=== PATIENT | male | born 1950 | race Caucasian/White ===

== ENCOUNTER 2017-12-18 10:44 | Emergency (ER) | payer MEDICAID, MEDICARE ==
[2017-12-18] MEDS ORDERED: Sodium Chloride 0.9% 10 ML Syringe FLUSH PRN (10:55)
--- NOTE | 2017-12-18 11:07 | EDM.PDOC ---
ED HPI GENERAL MEDICAL PROBLEM - General Chief Complaint: General Stated Complaint: A-FIB Time Seen by Provider: 12/18/17 10:45 Source of Information: Reports: Patient, Family, RN History Limitations: Reports: No Limitations - History of Present Illness INITIAL COMMENTS - FREE TEXT/NARRATIVE: 67 yr male presents to ER with feeling weakness and feels like he has atrial fibrillation. States significant cardiac history. Recent change of pacemaker about 3 weeks ago. States medications changed about 1 month ago. VS stable and EKG - Related Data Allergies Allergy/AdvReac Type Severity Reaction Status Date / Time codeine Allergy Cannot Verified 12/30/13 14:14 Remember Home Meds: Home Meds Carvedilol 25 mg PO BID 10/23/13 [History] Lisinopril [Zestril] 10 mg PO DAILY 10/23/13 [History] Nitroglycerin [Nitrostat] 0.4 mg SL ASDIRECTED PRN 10/23/13 [History] Prasugrel [Effient] 10 mg PO DAILY 10/23/13 [History] atorvaSTATin [Lipitor] 80 mg PO BEDTIME 10/23/13 [History] metFORMIN [Glucophage] 500 mg PO BIDM 10/23/13 [History] Aspirin [Ecotrin] 325 mg PO DAILY 12/26/15 [History] Past Medical History HEENT History: Reports: Impaired Vision Cardiovascular History: Reports: Bypass, CAD, High Cholesterol, Hypertension, [place] , Pacemaker Genitourinary History: Reports: Prostate Disorder - Past Surgical History Cardiovascular Surgical History: Reports: Coronary Artery Bypass, Coronary Artery Stent, Other (See Below) Social & Family History - Living Situation & Occupation Living situation: Reports: Occupation: Disabled ED ROS GENERAL - Review of Systems Review Of Systems: See Below Constitutional: Reports: Weakness, Other (tired) HEENT: Reports: No Symptoms, Glasses Respiratory: Reports: No Symptoms. Denies: Shortness of Breath, Cough Cardiovascular: Reports: Chest Pain, Other (feels like atrial fibrillation). Denies: Palpitations GI/Abdominal: Reports: No Symptoms Musculoskeletal: Reports: No Symptoms Skin: Reports: No Symptoms Neurological: Reports: No Symptoms Psychiatric: Reports: No Symptoms ED EXAM, GENERAL - Physical Exam Exam: See Below Exam Limited By: No Limitations General Appearance: Alert, WD/WN, No Apparent Distress Ears: Hearing Grossly Normal Nose: Normal Inspection Throat/Mouth: Normal Inspection, Normal Lips, No Airway Compromise Head: Atraumatic, Normocephalic Neck: Normal Inspection, Supple, Non-Tender Respiratory/Chest: No Respiratory Distress, Lungs Clear, Normal Breath Sounds Cardiovascular: Normal Peripheral Pulses, Regular Rate, Rhythm GI/Abdominal: Soft, Non-Tender, No Distention Extremities: Normal Inspection, Normal Range of Motion, Non-Tender Neurological: Alert, Oriented, CN II-XII Intact, Normal Cognition Psychiatric: Normal Affect, Normal Mood Skin Exam: Warm, Dry, Intact, Normal Color Lymphatic: No Adenopathy EKG INTERPRETATION EKG Date: 12/18/17 Time: 10:51 Rhythm: A-Flutter Rate (Beats/Min): 93 P-Wave: Present Comparison: Change From Previous EKG EKG Interpretation Comments: Atrial flutter with rate of 93, no pacer spikes noted. Course - Orders/Labs/Meds Orders: Active Orders 24 hr Category Date Time Status Cardiac Monitoring [RC] .As Directed Care 12/18/17 10:56 Active EKG Documentation Completion [RC] ASDIRECTED Care 12/18/17 10:57 Active Sodium Chloride 0.9% [Saline Flush] Med 12/18/17 10:55 Active 10 ml FLUSH ASDIRECTED PRN Saline Lock Insert [OM.PC] Stat Oth 12/18/17 10:55 Ordered Medication Orders Sodium Chloride (Saline Flush) 10 ml FLUSH ASDIRECTED PRN PRN Reason: Keep Vein Open Labs: Laboratory Tests 12/18/17 12/18/17 12/18/17 Range/Units 11:00 11:00 11:00 WBC 6.7 D (4.0-11.0) K/uL RBC 4.53 (4.50-6.50) M/uL Hgb 13.6 (13.0-18.0) g/dL Hct 40.6 (40.0-54.0) % MCV 90 (76-96) fL MCH 30.0 (27.0-32.0) pg MCHC 33.5 (31.0-35.0) g/dL RDW 13.6 (11.0-16.0) % Plt Count 190 (150-400) K/uL MPV 10.1 H (6.0-10.0) fL Neut % (Auto) 65.8 (45.0-70.0) % Lymph % (Auto) 26.2 (20.0-40.0) % [place] % (Auto) 6.4 (3.0-10.0) % Eos % (Auto) 1.3 (1.0-5.0) % Baso % (Auto) 0.3 (0.0-0.5) % Neut # (Auto) 4.41 (2.00-7.50) K/uL Lymph # (Auto) 1.76 (1.50-4.00) K/uL [place] # (Auto) 0.43 (0.20-0.80) K/uL Eos # (Auto) 0.09 (0.04-0.40) K/uL Baso # (Auto) 0.02 (0.02-0.10) K/uL Sodium 139 (136-145) mmol/L Potassium 4.3 (3.5-5.1) mmol/L Chloride 106 (98-107) mmol/L Carbon Dioxide 25.4 (21.0-32.0) mmol/L Anion Gap 11.9 (5.0-15.0) mmol/L BUN 23 (8-26) mg/dL Creatinine 1.18 (0.70-1.30) mg/dL Est Cr Clr Drug Dosing TNP Estimated GFR (MDRD) > 60 (>60) MLS/MIN BUN/Creatinine Ratio 19.5 (6-25) Glucose 168 H (74-100) mg/dL Calcium 9.0 (8.5-10.1) mg/dL Total Bilirubin 0.4 D (0.0-1.0) mg/dL AST 16 (15-37) U/L ALT 28 (12-78) U/L Alkaline Phosphatase 84 (46-116) U/L Troponin I < 0.017 (0.000-0.060) ng/mL Total Protein 7.2 (6.4-8.2) g/dL Albumin 3.6 (3.4-5.0) g/dL Globulin 3.6 (2.2-4.2) g/dL Albumin/Globulin Ratio 1.0 (0.8-2.0) TSH, Ultra Sensitive 2.283 (0.358-3.740) uIU/mL Meds: Medications Generic Name Dose Route Start Last Admin Trade Name Konradq PRN Reason Stop Dose Admin Sodium Chloride 10 ml 12/18/17 10:55 Saline Flush FLUSH ASDIRECTED PRN Keep Vein Open - Re-Assessments/Exams Free Text/Narrative Re-Assessment/Exam: 12/18/17 12:26 Reviewed EKG, lab results, troponins are negative and TSH normal , Electrolytes, kidney function and liver function tests are negative. Discussed pt status with cardiology, Rusty Allan. Dr Martin is off, so talked with instructional developer provider. Results faxed to cardiology for review. Recommend increase of Sotalol to 120mg PO bid and return to Dr Martin for follow -up. Reviewed with pt and . Pt comfortable and symptoms relieved during ER visit. Departure - Departure Time of Disposition: 12:30 Disposition: Home, Self-Care 01 Condition: Good Clinical Impression: Arrhythmia Referrals: PCP,None [Ordering Only Provider] - Forms: ED Department Discharge - My Orders Last 24 Hours: My Active Orders 12/18/17 10:55 Sodium Chloride 0.9% [Saline Flush] 10 ml FLUSH ASDIRECTED PRN Saline Lock Insert [OM.PC] Stat 12/18/17 10:56 Cardiac Monitoring [RC] .As Directed 12/18/17 10:57 EKG Documentation Completion [RC] ASDIRECTED - Assessment/Plan Last 24 Hours: My Active Orders 12/18/17 10:55 Sodium Chloride 0.9% [Saline Flush] 10 ml FLUSH ASDIRECTED PRN Saline Lock Insert [OM.PC] Stat 12/18/17 10:56 Cardiac Monitoring [RC] .As Directed 12/18/17 10:57 EKG Documentation Completion [RC] ASDIRECTED Plan: Recommend to rest and relax and increase Sotalol to 120mg PO bid. Pt to monitor heart rate and BP daily and follow-up with cardiology in 1-2 weeks. Recommend activity every 1-2 hour of ambulation while awake to prevent any blood clots with this atrial flutter. Pt and states understanding of the plan and will follow-up with cardiology. If symptoms reoccur pt should report to ER. Plans to go camping this weekend in [place].
== END 2017-12-18 12:30 | disposition home or self-care (01) ==
LOC: LB.ED 10:44
DX: I49.9 Cardiac arrhythmia, unspecified (principal); I10 Essential (primary) hypertension; Z95.1 Presence of aortocoronary bypass graft; Z95.5 Presence of coronary angioplasty implant and graft; Z79.899 Other long term (current) drug therapy; Z79.82 Long term (current) use of aspirin; Z79.84 Long term (current) use of oral hypoglycemic drugs; Z88.5 Allergy status to narcotic agent
CPT/HCPCS: 36415; 80053; 84443; 84484; 85025; 93005; 99284; 99285-25

== ENCOUNTER 2019-02-04 22:45 | Emergency (ER) | payer MEDICARE ==
--- NOTE | 2019-02-04 23:29 | EDM.PDOC ---
ED HPI GENERAL MEDICAL PROBLEM - General Chief Complaint: General Stated Complaint: afib Time Seen by Provider: 02/04/19 23:10 Source of Information: Reports: Patient History Limitations: Reports: No Limitations - History of Present Illness INITIAL COMMENTS - FREE TEXT/NARRATIVE: Pt has chronic Afib and has been on sotalol, Coreg and amiodarone. He claims he has chuy feeling tired for past 6 hours now. He claims his pulse is weak, and has been checking his pulse and claims his pulse is weak and hence he came into emergency room. No chest pain, no shortness of breath, no sweating, no nausea or vomiting. No dizzy spells or syncope. Onset: Today Onset Time: 14:00 Associated Symptoms: Reports: Weakness. Denies: Confusion, Chest Pain, Cough, Diaphoresis, Fever/Chills, Headaches, Nausea/Vomiting, Rash, Seizure, Shortness of Breath, Syncope - Related Data Allergies Allergy/AdvReac Type Severity Reaction Status Date / Time codeine Allergy Cannot Verified 02/04/19 23:16 Remember Home Meds: Home Meds Carvedilol 12.5 mg PO BID 10/23/13 [History] Lisinopril [Zestril] 10 mg PO DAILY 10/23/13 [History] Nitroglycerin [Nitrostat] 0.4 mg SL ASDIRECTED PRN 10/23/13 [History] Prasugrel [Effient] 10 mg PO DAILY 10/23/13 [History] atorvaSTATin [Lipitor] 80 mg PO BEDTIME 10/23/13 [History] metFORMIN [Glucophage] 500 mg PO BIDM 10/23/13 [History] Aspirin [Ecotrin] 325 mg PO DAILY 12/26/15 [History] Sotalol [Betapace, Sorine] 120 mg PO BID 01/25/18 [History] Tamsulosin HCl [Flomax] 0.4 mg PO DAILY 01/25/18 [History] Past Medical History HEENT History: Reports: Impaired Vision Cardiovascular History: Reports: Bypass, CAD, High Cholesterol, Hypertension, [place] , Pacemaker Genitourinary History: Reports: Prostate Disorder - Past Surgical History Cardiovascular Surgical History: Reports: Coronary Artery Bypass, Coronary Artery Stent, Other (See Below) Social & Family History - Living Situation & Occupation Living situation: Reports: Occupation: Disabled ED ROS GENERAL - Review of Systems Review Of Systems: See Below Constitutional: Reports: Weakness. Denies: Fever, Chills HEENT: Denies: Ear Pain, Rhinitis, Throat Pain Respiratory: Denies: Shortness of Breath, Wheezing, Pleuritic Chest Pain, Cough , Sputum Cardiovascular: Denies: Chest Pain, Lightheadedness, Syncope GI/Abdominal: Denies: Abdominal Pain, Nausea, Vomiting : Denies: Flank Pain, Frequency Musculoskeletal: Denies: Joint Pain, Joint Swelling Skin: Denies: Bruising, Pruritis, Rash, Wound ED EXAM, GENERAL - Physical Exam Exam: See Below Exam Limited By: No Limitations General Appearance: Alert, WD/WN, No Apparent Distress Eye Exam: Bilateral Eye: EOMI, PERRL Ears: Normal External Exam, Normal Canal, Hearing Grossly Normal, Normal TMs Ear Exam: Bilateral Ear: Auricle Normal, Canal Normal, TM normal Nose: Normal Inspection, Normal Mucosa, No Blood Throat/Mouth: Normal Inspection, Normal Lips, Normal Teeth, Normal Gums, Normal Oropharynx, Normal Voice, No Airway Compromise Head: Atraumatic, Normocephalic Neck: Normal Inspection, Supple, Non-Tender, Full Range of Motion Respiratory/Chest: No Respiratory Distress, Lungs Clear, Normal Breath Sounds, No Accessory Muscle Use, Chest Non-Tender Cardiovascular: Irregularly Irregular, Other (rate is varying between 80-90s.) GI/Abdominal: Normal Bowel Sounds, Soft, Non-Tender, No Organomegaly, No Distention, No Abnormal Bruit, No Mass Back Exam: Normal Inspection, Full Range of Motion, NT Extremities: Normal Inspection, Normal Range of Motion, Non-Tender, Normal Capillary Refill, Pedal Edema (1+ over the ankle and lower legs) EKG INTERPRETATION EKG Date: 02/04/19 Rate (Beats/Min): 98 [place]: Normal P-Wave: Present QRS: Normal ST-T: Normal QT: Normal EKG Interpretation Comments: Afib with rate of 98 Course - Vital Signs Text/Narrative:: Pt claims he feels tired since today afternoon. He has no chest pain, shortness of breath, chest discomfort, no sweating. No blood in the stool or urine. He does have afib and rate appears controlled. His Blood pressure is stable. Initial BP was 134/91mmhg, repeat after 15 minutes of resting was 115/74mmhg. He does have strong pulse, but is irregularly irregular. he is on stoke prophylaxis with Effient. Clinically exam and vitals are stable. Considering his chronic cardiac history and fatigue and with him being on blood thinner, I do want to rule out, anemia, hypothyroidism and acute cardiac episode. hence did order, CBC, CMP, TSH and Troponin. His CBC is normal. His CMP is stable. His Troponin is negative. His TSH is 4.6. In January 2018 his TSh was elevated at 5.4. I do feel patient might have subclinical hypothyroidism, which he should followup with his primary care and professor of religion and see if he is candidate for levothyroxine therapy. Also his fatigue could be related to his new drug , amiodarone which was restarted per patient, but I do not see in any of his cardiology notes. - Orders/Labs/Meds Orders: Active Orders 24 hr Category Date Time Status EKG Documentation Completion [RC] ASDIRECTED Care 02/04/19 23:08 Active Chest 1V Frontal [CR] Stat Exams 02/04/19 23:22 Taken EKG 12 Lead [EK] Routine Ther 02/04/19 23:07 Ordered Labs: Laboratory Tests 02/04/19 02/04/19 02/04/19 Range/Units 22:35 22:35 23:35 WBC 6.7 (4.0-11.0) K/uL RBC 4.23 L (4.50-6.50) M/uL Hgb 12.8 L (13.0-18.0) g/dL Hct 37.9 L (40.0-54.0) % MCV 90 (76-96) fL MCH 30.3 (27.0-32.0) pg MCHC 33.8 (31.0-35.0) g/dL RDW 13.9 (11.0-16.0) % Plt Count 189 (150-400) K/uL MPV 10.5 H (6.0-10.0) fL Neut % (Auto) 59.2 (45.0-70.0) % Lymph % (Auto) 31.4 (20.0-40.0) % [place] % (Auto) 7.7 (3.0-10.0) % Eos % (Auto) 1.4 (1.0-5.0) % Baso % (Auto) 0.3 (0.0-0.5) % Neut # (Auto) 3.95 (2.00-7.50) K/uL Lymph # (Auto) 2.09 (1.50-4.00) K/uL [place] # (Auto) 0.51 (0.20-0.80) K/uL Eos # (Auto) 0.09 (0.04-0.40) K/uL Baso # (Auto) 0.02 (0.02-0.10) K/uL Sodium 140 (136-145) mmol/L Potassium 4.0 (3.5-5.1) mmol/L Chloride 107 (98-107) mmol/L Carbon Dioxide 24.6 (21.0-32.0) mmol/L Anion Gap 12.4 (5.0-15.0) mmol/L BUN 29 H D (8-26) mg/dL Creatinine 1.30 (0.70-1.30) mg/dL Est Cr Clr Drug Dosing TNP Estimated GFR (MDRD) 55 L (>60) MLS/MIN BUN/Creatinine Ratio 22.3 (6-25) Glucose 202 H (74-100) mg/dL Calcium 9.2 (8.5-10.1) mg/dL Total Bilirubin 0.4 D (0.0-1.0) mg/dL AST 11 L (15-37) U/L ALT 16 (12-78) U/L Alkaline Phosphatase 78 (46-116) U/L Troponin I < 0.017 (0.000-0.060) ng/mL Total Protein 6.3 L (6.4-8.2) g/dL Albumin 3.3 L (3.4-5.0) g/dL Globulin 3.0 (2.2-4.2) g/dL Albumin/Globulin Ratio 1.1 (0.8-2.0) TSH, Ultra Sensitive 4.666 H (0.358-3.740) uIU/mL Departure - Departure Time of Disposition: 12:20 Disposition: Home, Self-Care 01 Condition: Fair Clinical Impression: Afib, Hypothyroidism - Discharge Information *PRESCRIPTION DRUG MONITORING PROGRAM REVIEWED*: Not Applicable *COPY OF PRESCRIPTION DRUG MONITORING REPORT IN PATIENT ANANTH: Not Applicable Forms: ED Department Discharge Additional Instructions: Pt claims he feels tired since today afternoon. He has no chest pain, shortness of breath, chest discomfort, no sweating. No blood in the stool or urine. He does have afib and rate appears controlled. His Blood pressure is stable. Initial BP was 134/91mmhg, repeat after 15 minutes of resting was 115/74mmhg. He does have strong pulse, but is irregularly irregular. he is on stoke prophylaxis with Effient. Clinically exam and vitals are stable. Considering his chronic cardiac history and fatigue and with him being on blood thinner, I do want to rule out, anemia, hypothyroidism and acute cardiac episode. hence did order, CBC, CMP, TSH and Troponin. His CBC is normal. His CMP is stable. His Troponin is negative. His TSH is 4.6. In January 2018 his TSh was elevated at 5.4. I do feel patient might have subclinical hypothyroidism, which he should followup with his primary care and professor of religion and see if he is candidate for levothyroxine therapy. Also his fatigue could be related to his new drug , amiodarone which was restarted per patient, but I do not see in any of his cardiology notes. - Problem List & Annotations (1) Afib SNOMED Code(s): 04802294 Code(s): I48.91 - UNSPECIFIED ATRIAL FIBRILLATION Status: Acute (2) Hypothyroidism SNOMED Code(s): 53469456 Code(s): E03.9 - HYPOTHYROIDISM, UNSPECIFIED Status: Acute - Problem List Review Problem List Initiated/Reviewed/Updated: Yes - My Orders Last 24 Hours: My Active Orders 02/04/19 23:07 EKG 12 Lead [EK] Routine 02/04/19 23:08 EKG Documentation Completion [RC] ASDIRECTED 02/04/19 23:22 Chest 1V Frontal [CR] Stat - Assessment/Plan Last 24 Hours: My Active Orders 02/04/19 23:07 EKG 12 Lead [EK] Routine 02/04/19 23:08 EKG Documentation Completion [RC] ASDIRECTED 02/04/19 23:22 Chest 1V Frontal [CR] Stat Assessment:: Afib and fatigue Hypothyroidism. Plan: Pt claims he feels tired since today afternoon. He has no chest pain, shortness of breath, chest discomfort, no sweating. No blood in the stool or urine. He does have afib and rate appears controlled. His Blood pressure is stable. Initial BP was 134/91mmhg, repeat after 15 minutes of resting was 115/74mmhg. He does have strong pulse, but is irregularly irregular. he is on stoke prophylaxis with Effient. Clinically exam and vitals are stable. Considering his chronic cardiac history and fatigue and with him being on blood thinner, I do want to rule out, anemia, hypothyroidism and acute cardiac episode. hence did order, CBC, CMP, TSH and Troponin. His CBC is normal. His CMP is stable. His Troponin is negative. His TSH is 4.6. In January 2018 his TSh was elevated at 5.4. I do feel patient might have subclinical hypothyroidism, which he should followup with his primary care and professor of religion and see if he is candidate for levothyroxine therapy. Also his fatigue could be related to his new drug , amiodarone which was restarted per patient, but I do not see in any of his cardiology notes.
[2019-02-05 04:31] VITALS: BP 115/80; PULSE 111
--- NOTE | 2019-02-05 16:33 | CR ---
CLINICAL DATA: Fatigue and a-fib. AP PORTABLE CHEST, 04 FEBRUARY 2019: The patient is status post median sternotomy. There are numerous surgical clips overlying the medial aspect of the left lung. The heart size is normal. There is cardiac pacer and pacer wires in place. No change in position from the prior study. There is linear fibrosis in the left lower lung. The lungs are otherwise clear. No pneumothorax. No pleural effusions. Job: [id number] MTDD
== END 2019-02-05 00:26 | disposition home or self-care (01) ==
LOC: LB.ED 22:45
DX: I48.91 Unspecified atrial fibrillation (principal); E03.9 Hypothyroidism, unspecified; I10 Essential (primary) hypertension; I25.2 Old myocardial infarction; E78.5 Hyperlipidemia, unspecified; Z79.899 Other long term (current) drug therapy; Z88.5 Allergy status to narcotic agent; Z79.82 Long term (current) use of aspirin; Z95.0 Presence of cardiac pacemaker; Z95.1 Presence of aortocoronary bypass graft
CPT/HCPCS: 36415; 71045; 80053; 84443; 84484; 85025; 99284; 99284-25

== ENCOUNTER 2020-01-02 13:13 | Emergency (ER) | payer MEDICARE ==
--- NOTE | 2020-01-02 13:54 | EDM.PDOC ---
ED HPI GENERAL MEDICAL PROBLEM - General Chief Complaint: Respiratory Problem Stated Complaint: dyspnea Time Seen by Provider: 01/02/20 13:45 Source of Information: Reports: Patient History Limitations: Reports: No Limitations - History of Present Illness INITIAL COMMENTS - FREE TEXT/NARRATIVE: Pt presents to ER after being on vacation with his family this past week. States he has been having dyspnea for past month but over past week becoming more and more short of breath. Now can barely walk 50 feet without having to stop and catch his breath. He denies CP, diaphoresis, or fevers. States he has been coughing for about a month, mostly non-productive but past week coughing up clear phlegm. Onset: Other Onset Date: 12/02/19 Duration: Getting Worse Location: Reports: Chest Severity: Moderate Improves with: Reports: Rest Worsens with: Reports: Movement Context: Reports: Activity Associated Symptoms: Reports: No Other Symptoms, Cough. Denies: Chest Pain, Diaphoresis, Fever/Chills, Nausea/Vomiting - Related Data Allergies Allergy/AdvReac Type Severity Reaction Status Date / Time codeine Allergy Cannot Verified 01/02/20 13:51 Remember Home Meds: Home Meds Lisinopril [Zestril] 10 mg PO DAILY 10/23/13 [History] Nitroglycerin [Nitrostat] 0.4 mg SL ASDIRECTED PRN 10/23/13 [History] Prasugrel [Effient] 10 mg PO DAILY 10/23/13 [History] atorvaSTATin [Lipitor] 80 mg PO BEDTIME 10/23/13 [History] carvediloL [Carvedilol] 25 mg PO BID 10/23/13 [History] metFORMIN [Glucophage] 1,000 mg PO BID 10/23/13 [History] Aspirin [Ecotrin] 325 mg PO DAILY 12/26/15 [History] Sotalol [Betapace, Sorine] 120 mg PO BID 01/25/18 [History] Tamsulosin HCl [Flomax] 0.4 mg PO DAILY 01/25/18 [History] Ranolazine [Ranexa] 500 mg PO BID 02/05/19 [History] Past Medical History HEENT History: Reports: Impaired Vision Cardiovascular History: Reports: Bypass, CAD, High Cholesterol, Hypertension, [place], Pacemaker Genitourinary History: Reports: Prostate Disorder Endocrine/Metabolic History: Reports: Diabetes, Type II Hematologic History: Reports: Anticoagulation Therapy - Past Surgical History Cardiovascular Surgical History: Reports: Coronary Artery Bypass, Coronary Artery Stent, Other (See Below) Social & Family History - Family History Family Medical History: Noncontributory - Caffeine Use Caffeine Use: Reports: Coffee - Living Situation & Occupation Living situation: Reports: Occupation: Disabled ED ROS GENERAL - Review of Systems Review Of Systems: See Below Constitutional: Denies: Fever, Malaise, Weakness HEENT: Reports: No Symptoms Respiratory: Reports: Shortness of Breath, Cough, Sputum. Denies: Wheezing, Pleuritic Chest Pain, Hemoptysis Cardiovascular: Reports: Dyspnea on Exertion. Denies: Chest Pain, Blood Pressure Problem, Palpitations, Syncope Endocrine: Reports: No Symptoms GI/Abdominal: Reports: No Symptoms. Denies: Abdominal Pain, Constipation, Diarrhea : Reports: No Symptoms Musculoskeletal: Reports: No Symptoms. Denies: Neck Pain, Back Pain Skin: Reports: No Symptoms Neurological: Reports: No Symptoms. Denies: Dizziness, Headache, Numbness, Paresthesia Psychiatric: Reports: No Symptoms ED EXAM, GENERAL - Physical Exam Exam: See Below Exam Limited By: No Limitations General Appearance: Alert, WD/WN, No Apparent Distress, Anxious Ears: Normal External Exam Nose: Normal Inspection Throat/Mouth: Normal Inspection, Normal Lips, Normal Teeth Head: Atraumatic, Normocephalic Neck: Normal Inspection, Supple, Non-Tender, Full Range of Motion Respiratory/Chest: No Respiratory Distress, Lungs Clear, Normal Breath Sounds, No Accessory Muscle Use, Chest Non-Tender. No: Respiratory Distress, Crackles, Rales, Rhonchi Cardiovascular: Normal Peripheral Pulses, Regular Rate, Rhythm, No Edema, No Gallop, No JVD GI/Abdominal: Normal Bowel Sounds, Soft, Non-Tender Back Exam: Normal Inspection, Full Range of Motion Extremities: Normal Inspection, Normal Range of Motion Neurological: Alert, Oriented, CN II-XII Intact, Normal Cognition, Normal Gait Psychiatric: Normal Affect, Normal Mood Skin Exam: Warm, Dry, Intact, Normal Color, No Rash EKG INTERPRETATION EKG Date: 01/02/20 Rhythm: A-Flutter Rate (Beats/Min): 113 ST-T: Depressed Comparison: Change From Previous EKG (a-fib and intrventricular conduction delay) Course - Vital Signs Last Recorded V/S: Last Vital Signs Temp 98 F 01/02/20 14:22 Pulse 114 H 01/02/20 15:08 Resp 22 H 01/02/20 15:00 BP 111/78 01/02/20 15:08 Pulse Ox 98 01/02/20 14:46 - Orders/Labs/Meds Orders: Active Orders 24 hr Category Date Time Status Cardiac Monitoring [RC] .As Directed Care 01/02/20 13:53 Active Cardiac Monitoring [RC] STAT Care 01/02/20 14:05 Active Communication Order [RC] Per Unit Routine Care 01/02/20 14:05 Active Communication Order [RC] Per Unit Routine Care 01/02/20 14:05 Active EKG Documentation Completion [RC] ASDIRECTED Care 01/02/20 14:07 Active Oxygen Therapy [RC] ASDIRECTED Care 01/02/20 14:05 Active Chest 1V Frontal [CR] Stat Exams 01/02/20 13:29 Taken Aspirin [Ecotrin] Med 01/03/20 08:00 Active 325 mg PO DAILY Medication Orders Non-Formulary Medication (Aspirin [Ecotrin]) 325 mg PO DAILY ADAM Last Admin: 01/02/20 14:58 Dose: 325 mg Documented by: MEHUL Labs: Laboratory Tests 01/02/20 01/02/20 01/02/20 Range/Units 13:45 13:45 13:45 WBC 5.8 (4.0-11.0) K/uL RBC 4.11 L (4.50-6.50) M/uL Hgb 12.8 L (13.0-18.0) g/dL Hct 37.8 L (40.0-54.0) % MCV 92 (76-96) fL MCH 31.1 (27.0-32.0) pg MCHC 33.9 (31.0-35.0) g/dL RDW 14.0 (11.0-16.0) % Plt Count 202 (150-400) K/uL MPV 10.7 H (6.0-10.0) fL Neut % (Auto) 69.6 (45.0-70.0) % Lymph % (Auto) 22.5 (20.0-40.0) % [place] % (Auto) 6.9 (3.0-10.0) % Eos % (Auto) 0.7 L (1.0-5.0) % Baso % (Auto) 0.3 (0.0-0.5) % Neut # (Auto) 4.06 (2.00-7.50) K/uL Lymph # (Auto) 1.31 L (1.50-4.00) K/uL [place] # (Auto) 0.40 (0.20-0.80) K/uL Eos # (Auto) 0.04 (0.04-0.40) K/uL Baso # (Auto) 0.02 (0.02-0.10) K/uL PT 10.8 (9.0-11.5) sec INR 1.1 (1.0-3.5) APTT 22.7 L (24.4-33.2) SECONDS VBG pH (7.31-7.41) VBG pCO2 (41-51) mm/Hg VBG pO2 (30-50) mm/Hg VBG HCO3 (23.0-28.0) mmol/L VBG O2 Saturation (60-85) % VBG Base Excess (-2-3) mm/L O2 Delivery Device Sodium (136-145) mmol/L Potassium (3.5-5.1) mmol/L Chloride (98-107) mmol/L Carbon Dioxide (21.0-32.0) mmol/L Anion Gap (5.0-15.0) mmol/L BUN (8-26) mg/dL Creatinine (0.70-1.30) mg/dL Est Cr Clr Drug Dosing Estimated GFR (MDRD) (>60) MLS/MIN BUN/Creatinine Ratio (6-25) Glucose (74-100) mg/dL Calcium (8.5-10.1) mg/dL Total Bilirubin (0.0-1.0) mg/dL AST (15-37) U/L ALT (12-78) U/L Alkaline Phosphatase (46-116) U/L Troponin I (0.000-0.060) ng/mL B-Natriuretic Peptide 2588 H (0-125) pg/mL Total Protein (6.4-8.2) g/dL Albumin (3.4-5.0) g/dL Globulin (2.2-4.2) g/dL Albumin/Globulin Ratio (0.8-2.0) COVID-19 ([facility]) 01/02/20 01/02/20 01/02/20 Range/Units 13:45 13:45 14:42 WBC (4.0-11.0) K/uL RBC (4.50-6.50) M/uL Hgb (13.0-18.0) g/dL Hct (40.0-54.0) % MCV (76-96) fL MCH (27.0-32.0) pg MCHC (31.0-35.0) g/dL RDW (11.0-16.0) % Plt Count (150-400) K/uL MPV (6.0-10.0) fL Neut % (Auto) (45.0-70.0) % Lymph % (Auto) (20.0-40.0) % [place] % (Auto) (3.0-10.0) % Eos % (Auto) (1.0-5.0) % Baso % (Auto) (0.0-0.5) % Neut # (Auto) (2.00-7.50) K/uL Lymph # (Auto) (1.50-4.00) K/uL [place] # (Auto) (0.20-0.80) K/uL Eos # (Auto) (0.04-0.40) K/uL Baso # (Auto) (0.02-0.10) K/uL PT (9.0-11.5) sec INR (1.0-3.5) APTT (24.4-33.2) SECONDS VBG pH 7.38 (7.31-7.41) VBG pCO2 42.0 (41-51) mm/Hg VBG pO2 22 L (30-50) mm/Hg VBG HCO3 25.0 (23.0-28.0) mmol/L VBG O2 Saturation 36 L (60-85) % VBG Base Excess 0 (-2-3) mm/L O2 Delivery Device Room air Sodium 143 (136-145) mmol/L Potassium 4.7 (3.5-5.1) mmol/L Chloride 105 (98-107) mmol/L Carbon Dioxide 23.8 (21.0-32.0) mmol/L Anion Gap 18.9 H (5.0-15.0) mmol/L BUN 25 (8-26) mg/dL Creatinine 1.27 (0.70-1.30) mg/dL Est Cr Clr Drug Dosing TNP Estimated GFR (MDRD) 56 L (>60) MLS/MIN BUN/Creatinine Ratio 19.7 (6-25) Glucose 202 H (74-100) mg/dL Calcium 9.4 (8.5-10.1) mg/dL Total Bilirubin 0.6 D (0.0-1.0) mg/dL AST 10 L (15-37) U/L ALT 25 (12-78) U/L Alkaline Phosphatase 80 (46-116) U/L Troponin I < 0.017 (0.000-0.060) ng/mL B-Natriuretic Peptide (0-125) pg/mL Total Protein 6.7 (6.4-8.2) g/dL Albumin 3.8 (3.4-5.0) g/dL Globulin 2.9 (2.2-4.2) g/dL Albumin/Globulin Ratio 1.3 (0.8-2.0) COVID-19 ([facility]) 01/02/20 Range/Units 14:48 WBC (4.0-11.0) K/uL RBC (4.50-6.50) M/uL Hgb (13.0-18.0) g/dL Hct (40.0-54.0) % MCV (76-96) fL MCH (27.0-32.0) pg MCHC (31.0-35.0) g/dL RDW (11.0-16.0) % Plt Count (150-400) K/uL MPV (6.0-10.0) fL Neut % (Auto) (45.0-70.0) % Lymph % (Auto) (20.0-40.0) % [place] % (Auto) (3.0-10.0) % Eos % (Auto) (1.0-5.0) % Baso % (Auto) (0.0-0.5) % Neut # (Auto) (2.00-7.50) K/uL Lymph # (Auto) (1.50-4.00) K/uL [place] # (Auto) (0.20-0.80) K/uL Eos # (Auto) (0.04-0.40) K/uL Baso # (Auto) (0.02-0.10) K/uL PT (9.0-11.5) sec INR (1.0-3.5) APTT (24.4-33.2) SECONDS VBG pH (7.31-7.41) VBG pCO2 (41-51) mm/Hg VBG pO2 (30-50) mm/Hg VBG HCO3 (23.0-28.0) mmol/L VBG O2 Saturation (60-85) % VBG Base Excess (-2-3) mm/L O2 Delivery Device Sodium (136-145) mmol/L Potassium (3.5-5.1) mmol/L Chloride (98-107) mmol/L Carbon Dioxide (21.0-32.0) mmol/L Anion Gap (5.0-15.0) mmol/L BUN (8-26) mg/dL Creatinine (0.70-1.30) mg/dL Est Cr Clr Drug Dosing Estimated GFR (MDRD) (>60) MLS/MIN BUN/Creatinine Ratio (6-25) Glucose (74-100) mg/dL Calcium (8.5-10.1) mg/dL Total Bilirubin (0.0-1.0) mg/dL AST (15-37) U/L ALT (12-78) U/L Alkaline Phosphatase (46-116) U/L Troponin I (0.000-0.060) ng/mL B-Natriuretic Peptide (0-125) pg/mL Total Protein (6.4-8.2) g/dL Albumin (3.4-5.0) g/dL Globulin (2.2-4.2) g/dL Albumin/Globulin Ratio (0.8-2.0) COVID-19 ([facility]) Negative Meds: Medications Generic Name Dose Route Start Last Admin Trade Name Freq PRN Reason Stop Dose Admin Non-Formulary Medication 325 mg 01/03/20 08:00 01/02/20 14:58 Aspirin [Ecotrin] PO 325 mg DAILY DAAM Administration Discontinued Medications Generic Name Dose Route Start Last Admin Trade Name Freq PRN Reason Stop Dose Admin Aspirin Confirm 01/02/20 14:55 01/02/20 15:42 Halfprin Administered 01/02/20 14:56 Not Given Dose 81 mg .ROUTE .STK-MED ONE Aspirin Confirm 01/02/20 14:56 01/02/20 15:42 Ecotrin Administered 01/02/20 14:57 Not Given Dose 325 mg .ROUTE .STK-MED ONE - Re-Assessments/Exams Free Text/Narrative Re-Assessment/Exam: 01/02/20 15:34 Work-up done which included: Labs:WBC and H&H - normal Chem:Abnormalities: Anion Gap 18.9 BNP 2588 Glucose:202 EKG: A-flutter 2:1 block CXR: read as normal by radiologist COVID - negative I spoke with Dr Posada (ER doctor in [place]) who thought that patient could have follow-up with his Wholesale Representative for further outpatient evaluation but if patient would be more assured he could drive to [place] ER and a CT Angio could be done to r/o definitive PE. Pt feels more comfortable with further evaluation has elected to have his drive him to [facility] angio. Pt remained pain free while in the ER here and only had complaint of SOB with O2 Sats of 98% Departure - Departure Time of Disposition: 15:44 Disposition: Home, Self-Care 01 Condition: Good Clinical Impression: Dyspnea, Arrhythmia - Discharge Information *PRESCRIPTION DRUG MONITORING PROGRAM REVIEWED*: No *COPY OF PRESCRIPTION DRUG MONITORING REPORT IN PATIENT ANANTH: No Referrals: PCP,None [Primary Care Provider] - Forms: ED Department Discharge, ED Summary Discharge Sepsis Event Note (ED) - Focused Exam Vital Signs: Vital Signs Temp Pulse Resp BP Pulse Ox 01/02/20 15:08 114 H 111/78 01/02/20 15:00 113 H 22 H 111/78 01/02/20 14:46 114 H 18 101/75 98 01/02/20 14:40 107/82 01/02/20 14:30 114 H 18 104/73 98 01/02/20 14:22 98 F 113 H 18 110/70 95 01/02/20 14:15 112 H 18 98/62 01/02/20 14:00 114 H 20 99/70 95 01/02/20 13:45 110 H 94/60 01/02/20 13:35 110 H 18 103/76 96 - My Orders Last 24 Hours: My Active Orders 01/02/20 13:29 Chest 1V Frontal [CR] Stat 01/02/20 13:53 Cardiac Monitoring [RC] .As Directed 01/02/20 14:05 Cardiac Monitoring [RC] STAT Communication Order [RC] Per Unit Routine Communication Order [RC] Per Unit Routine Oxygen Therapy [RC] ASDIRECTED 01/02/20 14:07 EKG Documentation Completion [RC] ASDIRECTED 01/03/20 08:00 Aspirin [Ecotrin] 325 mg PO DAILY - Assessment/Plan Last 24 Hours: My Active Orders 01/02/20 13:29 Chest 1V Frontal [CR] Stat 01/02/20 13:53 Cardiac Monitoring [RC] .As Directed 01/02/20 14:05 Cardiac Monitoring [RC] STAT Communication Order [RC] Per Unit Routine Communication Order [RC] Per Unit Routine Oxygen Therapy [RC] ASDIRECTED 01/02/20 14:07 EKG Documentation Completion [RC] ASDIRECTED 01/03/20 08:00 Aspirin [Ecotrin] 325 mg PO DAILY
[2020-01-02] MEDS ORDERED: Aspirin 81 MG Tab.EC ONE (14:55)
[2020-01-02] MEDS ORDERED: Aspirin 325 MG Tab.EC ONE (14:56)
[2020-01-02 15:01] VITALS: BP 111/78
[2020-01-02 15:09] VITALS: PULSE 114
--- NOTE | 2020-01-03 07:36 | CR ---
Date of Service: 01/02/20' Clinical Data: SOB AP CHEST: Comparison is made to a prior exam dated 01/25/19. The cardiac pacer and pacer wires remain unchanged in position. The patient is status post median sternotomy. The heart size is stable. The lungs are clear. No pneumothorax. No pleural effusions. No evidence of acute intrathoracic disease. [id number] [facility]
[2020-01-03] MEDS ORDERED: ASPIRIN 325 MG PO SCH (08:00)
== END 2020-01-02 16:29 | disposition home or self-care (01) ==
LOC: LB.ED 13:13
DX: I49.9 Cardiac arrhythmia, unspecified (principal); R06.00 Dyspnea, unspecified; I10 Essential (primary) hypertension; I25.10 Atherosclerotic heart disease of native coronary artery without angina pectoris; I25.2 Old myocardial infarction; E11.9 Type 2 diabetes mellitus without complications; I48.92 Unspecified atrial flutter; Z79.01 Long term (current) use of anticoagulants; Z95.1 Presence of aortocoronary bypass graft; Z79.899 Other long term (current) drug therapy; Z79.82 Long term (current) use of aspirin; Z88.5 Allergy status to narcotic agent; Z20.828 Contact with and (suspected) exposure to other viral communicable diseases
CPT/HCPCS: 36415; 71045; 80053; 82803; 83880; 84484; 85025; 85610; 85730; 93005; 99285; A9270; U0002

== ENCOUNTER 2020-03-18 09:51 | Emergency (ER) | payer MEDICAID, MEDICARE ==
[2020-03-18 11:01] VITALS: PULSE 60
--- NOTE | 2020-03-18 11:44 | EDM.PDOC ---
ED HPI GENERAL MEDICAL PROBLEM - General Chief Complaint: Cardiovascular Problem Stated Complaint: chest pain Time Seen by Provider: 03/18/20 10:40 Source of Information: Reports: Patient History Limitations: Reports: No Limitations - History of Present Illness INITIAL COMMENTS - FREE TEXT/NARRATIVE: Patient presents emergency department with an episode of atrial fibrillation w [facility] patient states had resolved prior to his arrival at emergency department. Patient states the episode lasted for about 1 hour, several minutes of chest pressure were associated. Patient states that several episodes of MS in the past which both chest pressure and chest pain as well as shortness of breath were associated but similar symptoms did not occur today. Patient states that similar episodes of atrial fibrillation lasting for 1 to 3 hours with most recent about 2 to 3 weeks ago, and another episode in early December which required patient to receive the cardioversion in the emergency department in [place]. Patient denies dizziness, lightheadedness, fever, chills, cough, nausea, vomiting, weakness. Patient states his atrial fibrillation symptoms have completely resolved in route to the emergency department. - Related Data Allergies Allergy/AdvReac Type Severity Reaction Status Date / Time codeine Allergy Cannot Verified 03/18/20 10:46 Remember Home Meds: Home Meds Lisinopril [Zestril] 10 mg PO DAILY 10/23/13 [History] Nitroglycerin [Nitrostat] 0.4 mg SL ASDIRECTED PRN 10/23/13 [History] Prasugrel [Effient] 10 mg PO DAILY 10/23/13 [History] atorvaSTATin [Lipitor] 80 mg PO BEDTIME 10/23/13 [History] carvediloL [Carvedilol] 25 mg PO BID 10/23/13 [History] metFORMIN [Glucophage] 1,000 mg PO BID 10/23/13 [History] Aspirin [Ecotrin] 325 mg PO DAILY 12/26/15 [History] Sotalol [Betapace, Sorine] 120 mg PO BID 01/25/18 [History] Tamsulosin HCl [Flomax] 0.4 mg PO DAILY 01/25/18 [History] Ranolazine [Ranexa] 500 mg PO BID 02/05/19 [History] Past Medical History HEENT History: Reports: Impaired Vision Cardiovascular History: Reports: Bypass, CAD, High Cholesterol, Hypertension, MS, Pacemaker Gastrointestinal History: Reports: Other (See Below) Other Gastrointestinal History: diarrhea at times Genitourinary History: Reports: Prostate Disorder Musculoskeletal History: Reports: Arthritis Psychiatric History: Reports: Depression Endocrine/Metabolic History: Reports: Diabetes, Type II Hematologic History: Reports: Anticoagulation Therapy - Infectious Disease History Infectious Disease History: Reports: Chicken Pox, Measles - Past Surgical History Cardiovascular Surgical History: Reports: Coronary Artery Bypass, Coronary Artery Stent, Other (See Below) Other Cardiovascular Surgeries/Procedures: defibrillator GI Surgical History: Reports: Hernia, Inguinal Male Surgical History: Reports: Vasectomy Social & Family History - Family History Family Medical History: No Pertinent Family History - Tobacco Use Tobacco Use Status *Q: Never Tobacco User Second Hand Smoke Exposure: No - Caffeine Use Caffeine Use: Reports: None - Recreational Drug Use Recreational Drug Use: No - Living Situation & Occupation Living situation: Reports: Occupation: Disabled ED ROS GENERAL - Review of Systems Review Of Systems: Comprehensive ROS is negative, except as noted in HPI. ED EXAM, GENERAL - Physical Exam Exam: See Below Exam Limited By: No Limitations General Appearance: Alert, WD/WN, No Apparent Distress Eye Exam: Bilateral Eye: EOMI, PERRL Respiratory/Chest: No Respiratory Distress, Lungs Clear, Normal Breath Sounds, No Accessory Muscle Use Cardiovascular: Normal Peripheral Pulses, Regular Rate, Rhythm, No JVD, No Murmur, No Rub Peripheral Pulses: 2+: Radial (L), Radial (R), Posterior Tibial (L), Posterior Tibial (R) Extremities: Normal Range of Motion, Non-Tender, Pedal Edema (+1) Neurological: Alert, Oriented, Normal Cognition, Normal Gait Skin Exam: Warm, Dry, Intact #1 Interpretation EKG Date: 03/18/20 Rhythm: Other (AV paced rhythm) [place]: Normal P-Wave: Present QRS: Normal ST-T: Normal QT: Normal EKG Interpretation Comments: no ST elevation, peaked T waves or significant Q waves noted. Course - Vital Signs Last Recorded V/S: Last Vital Signs Temp 97.7 F 03/18/20 10:35 Pulse 60 03/18/20 12:07 Resp 15 03/18/20 12:07 BP 128/77 03/18/20 12:07 Pulse Ox 98 03/18/20 12:07 - Orders/Labs/Meds Labs: Laboratory Tests 03/18/20 03/18/20 Range/Units 11:00 11:00 WBC 5.1 D (4.0-11.0) K/uL RBC 4.00 L (4.50-6.50) M/uL Hgb 12.1 L (13.0-18.0) g/dL Hct 37.0 L (40.0-54.0) % MCV 93 (76-96) fL MCH 30.3 (27.0-32.0) pg MCHC 32.7 (31.0-35.0) g/dL RDW 13.4 (11.0-16.0) % Plt Count 158 D (150-400) K/uL MPV 10.2 H (6.0-10.0) fL Neut % (Auto) 62.8 (45.0-70.0) % Lymph % (Auto) 29.5 (20.0-40.0) % [place] % (Auto) 6.1 (3.0-10.0) % Eos % (Auto) 1.2 (1.0-5.0) % Baso % (Auto) 0.4 (0.0-0.5) % Neut # (Auto) 3.17 (2.00-7.50) K/uL Lymph # (Auto) 1.49 L (1.50-4.00) K/uL [place] # (Auto) 0.31 (0.20-0.80) K/uL Eos # (Auto) 0.06 (0.04-0.40) K/uL Baso # (Auto) 0.02 (0.02-0.10) K/uL Sodium 144 (136-145) mmol/L Potassium 4.6 (3.5-5.1) mmol/L Chloride 106 (98-107) mmol/L Carbon Dioxide 27.0 (21.0-32.0) mmol/L Anion Gap 15.6 H (5.0-15.0) mmol/L BUN 21 (8-26) mg/dL Creatinine 1.13 (0.70-1.30) mg/dL Est Cr Clr Drug Dosing 58.50 mL/min Estimated GFR (MDRD) > 60 (>60) MLS/MIN BUN/Creatinine Ratio 18.6 (6-25) Glucose 200 H D (74-100) mg/dL Calcium 9.2 (8.5-10.1) mg/dL Magnesium 2.1 (1.8-2.4) mg/dL Total Bilirubin 0.4 D (0.0-1.0) mg/dL AST 8 L (15-37) U/L ALT 22 (12-78) U/L Alkaline Phosphatase 62 (46-116) U/L Total Protein 6.4 (6.4-8.2) g/dL Albumin 3.5 (3.4-5.0) g/dL Globulin 2.9 (2.2-4.2) g/dL Albumin/Globulin Ratio 1.2 (0.8-2.0) Departure - Departure Time of Disposition: 12:00 Disposition: Home, Self-Care 01 Condition: Good Clinical Impression: Arrhythmia Instructions: Atrial Fibrillation, [id number] Referrals: PCP,None [Primary Care Provider] - Forms: ED Department Discharge Additional Instructions: continue your medications as normal. follow up in clinic and with cardiology as scheduled. your EKG looks good today, labs also look good. chance you had a heart attack today is very low. do monitor symptoms and call clinic or return to ER if symptoms last longer than 2 to 3 hours. continue to manage stress, activity levels, diet and fluid intake. Sepsis Event Note (ED) - Evaluation Sepsis Screening Result: No Definite Risk - Focused Exam Vital Signs: Vital Signs Temp Pulse Resp BP Pulse Ox 03/18/20 12:07 60 15 128/77 98 03/18/20 11:37 60 13 128/75 97 03/18/20 11:32 60 17 128/75 97 03/18/20 11:24 60 18 120/68 96 03/18/20 11:01 60 18 120/68 95 03/18/20 10:54 60 14 129/75 99 03/18/20 10:35 97.7 F 63 18 133/79 99 03/18/20 10:31 97.7 F 63 18 133/79 99 - Problem List & Annotations (1) Arrhythmia SNOMED Code(s): 408392404 Code(s): I49.9 - CARDIAC ARRHYTHMIA, UNSPECIFIED Status: Acute Qualifiers: Arrhythmia type: atrial fibrillation Atrial fibrillation type: paroxysmal Qualified Code(s): I48.0 - Paroxysmal atrial fibrillation - Problem List Review Problem List Initiated/Reviewed/Updated: Yes - Assessment/Plan Assessment:: Assessment: Paroxysmal atrial fibrillation episode Plan: Discharge patient home with return precautions and discharge instructions to follow-up in clinic as scheduled, return if symptoms recur for longer than 2 to 3 hours, return if symptoms recur and are associated with chest pain, or any other concerning symptom. Differentials considered MS, A. fib with RVR, COVID-19, ventricular fibrillation. Most likely atrial fibrillation episode which self resolved and rhythm returned to AV paced by ECG time evaluation. Patient completely asymptomatic during his ED evaluation. Laboratory evaluation shows patient at baseline renal function, electrolytes, blood count. Patient agreeable to plan of care and return precautions.
[2020-03-18 12:07] VITALS: BP 128/77
== END 2020-03-18 12:15 | disposition home or self-care (01) ==
LOC: LB.ED 09:51
DX: I49.9 Cardiac arrhythmia, unspecified (principal); I25.10 Atherosclerotic heart disease of native coronary artery without angina pectoris; E78.00 Pure hypercholesterolemia, unspecified; I10 Essential (primary) hypertension; I25.2 Old myocardial infarction; E11.9 Type 2 diabetes mellitus without complications; M19.90 Unspecified osteoarthritis, unspecified site; F32.9 Major depressive disorder, single episode, unspecified; Z79.84 Long term (current) use of oral hypoglycemic drugs; Z88.5 Allergy status to narcotic agent; Z79.82 Long term (current) use of aspirin; Z79.899 Other long term (current) drug therapy
CPT/HCPCS: 36415; 80053; 83735; 85025; 93005; 99284; 99285-25

== ENCOUNTER 2022-04-19 20:45 | Emergency (ER) | payer MEDICARE ==
[2022-04-19 21:08] VITALS: BP 141/92; PULSE 128
[2022-04-19] MEDS ORDERED: Loratadine 10 MG Tab PO ONE (21:24)
[2022-04-19] MEDS ORDERED: Loratadine 10 MG Tab ONE (21:25)
[2022-04-19] MEDS ORDERED: Amoxicillin 500 MG Cap ONE (22:00)
== END 2022-04-19 22:06 | disposition home or self-care (01) ==
LOC: LB.ED 20:45
DX: H65.01 Acute serous otitis media, right ear (principal); I25.10 Atherosclerotic heart disease of native coronary artery without angina pectoris; E78.00 Pure hypercholesterolemia, unspecified; I10 Essential (primary) hypertension; I25.2 Old myocardial infarction; E11.9 Type 2 diabetes mellitus without complications; Z88.5 Allergy status to narcotic agent; Z79.899 Other long term (current) drug therapy; Z79.84 Long term (current) use of oral hypoglycemic drugs; Z79.82 Long term (current) use of aspirin; Z79.01 Long term (current) use of anticoagulants
CPT/HCPCS: 87804; 87804-59; 99283; A9270-GY

== ENCOUNTER 2022-09-24 10:18 | Day surgery (SDC) | payer MEDICARE ==
[~2022-09-24 10:18] MED LIST: Metoclopramide 10 MG/2 ML SDV IV PRN; Sodium Chloride 0.9% 1,000 ML IV SCH
[2022-09-24] MEDS ORDERED: Propofol 200 MG/20 ML SDV ONE (12:45)
[2022-09-24] MEDS ORDERED: Glycopyrrolate 0.2 MG/ML 2 ML SDV ONE (12:45)
[2022-09-24 12:56] VITALS: BP 119/65; PULSE 66
== END 2022-09-24 13:40 | disposition home or self-care (01) ==
LOC: LB.SDS 10:18
PROVIDERS: ATTEND Surgery
DX: Z12.11 Encounter for screening for malignant neoplasm of colon (principal); K63.5 Polyp of colon; K57.30 Diverticulosis of large intestine without perforation or abscess without bleeding; I10 Essential (primary) hypertension; E11.9 Type 2 diabetes mellitus without complications; Z88.5 Allergy status to narcotic agent
CPT/HCPCS: 82947; 88305; J2704; J3490; J7030

== ENCOUNTER 2022-10-27 15:18 | Observation (INO) | payer MEDICARE, OTHER ==
[2022-10-27] MEDS ORDERED: Sodium Chloride 0.9% 10 ML Syringe FLUSH PRN (15:50)
[2022-10-27 15:56] LABS: HEMATOCRIT 40.6 % (40.0-54.0); HEMOGLOBIN 13.7 g/dL (13.0-18.0); MEAN CORPUSCULAR HGB CONC 33.7 g/dL (31.0-35.0); MEAN PLATELET VOLUME 9.9 fL (6.0-10.0); RED BLOOD CELL COUNT 4.42 M/uL (4.50-6.50); RED CELL DISTRIBUTION WIDTH 13.9 % (11.0-16.0); WHITE BLOOD CELL COUNT,WBC 5.2 K/uL (4.0-11.0)
[2022-10-27] MEDS ORDERED: Sodium Chloride 0.9% 1,000 ML IV SCH (16:00)
[2022-10-27 16:14] LABS: ANION GAP 11.7 mmol/L (5.0-15.0); BUN/CREATININE RATIO 17.5 (6-25); CALCIUM 9.3 mg/dL (8.5-10.1); CARBON DIOXIDE,CO2 27.9 mmol/L (21.0-32.0); CREATININE 1.26 mg/dL (0.70-1.30); MAGNESIUM 2.2 mg/dL (1.8-2.4); PHOSPHORUS 3.9 mg/dL (2.5-4.9); POTASSIUM,K 4.6 mmol/L (3.5-5.1)
[2022-10-27 16:19] LABS: TROPONIN I HIGH SENSITIVITY 203.3 pg/ml (<=60.4)
[2022-10-27] MEDS ORDERED: Metoprolol Tartrate 25 MG Tab PO ONE (16:19)
[2022-10-27] MEDS ORDERED: Metoprolol Tartrate 25 MG Tab ONE (16:20)
[2022-10-28 08:36] VITALS: BP 92/61; PULSE 108
[2022-10-28] MEDS ORDERED: Carvedilol 6.25 MG Tab PO SCH (20:00)
[2022-10-28] MEDS ORDERED: RANOLAZINE 500 MG PO SCH (20:00)
[2022-10-28] MEDS ORDERED: Aspirin 81 MG Tab.EC PO SCH (20:00)
[2022-10-28] MEDS ORDERED: metFORMIN 500 MG Tab PO SCH (20:00)
[2022-10-28] MEDS ORDERED: Non-Formulary Medication 1 Each (Sacubitril/Valsartan [Entresto 49 Mg-51 Mg Tablet] 1 EACH PO SCH (20:00)
[2022-10-28] MEDS ORDERED: Non-Formulary Medication 1 Each (Empagliflozin [Jardiance] 25 MG Tablet) PO SCH (20:00)
[2022-10-28] MEDS ORDERED: Apixaban 5 MG Tab PO SCH (20:00)
[2022-10-28] MEDS ORDERED: atorvaSTATin 80 MG Tab PO SCH (20:00)
[2022-10-29] MEDS ORDERED: Losartan 50 MG Tab PO SCH (08:00)
[2022-10-29] MEDS ORDERED: Spironolactone 25 MG Tab PO SCH (08:00)
[2022-10-29] MEDS ORDERED: Digoxin 125 MCG Tab PO SCH (08:00)
== END 2022-10-28 10:52 | disposition home or self-care (01) ==
LOC: LB.ED 15:18 → LB.MS 17:32 → UNDOADMOB 17:43 → UNDODISOB 10-28 10:52
PROVIDERS: ADMIT Surgery; ATTEND Surgery
DX: R00.0 Tachycardia, unspecified (principal); R77.8 Other specified abnormalities of plasma proteins; E11.9 Type 2 diabetes mellitus without complications; E78.00 Pure hypercholesterolemia, unspecified; I25.10 Atherosclerotic heart disease of native coronary artery without angina pectoris; F32.A Depression, unspecified; M19.90 Unspecified osteoarthritis, unspecified site; I25.2 Old myocardial infarction; I44.7 Left bundle-branch block, unspecified; Z79.899 Other long term (current) drug therapy; Z79.84 Long term (current) use of oral hypoglycemic drugs; Z79.82 Long term (current) use of aspirin; Z95.1 Presence of aortocoronary bypass graft; Z88.5 Allergy status to narcotic agent; Z79.01 Long term (current) use of anticoagulants; Z98.890 Other specified postprocedural states
CPT/HCPCS: 36415; 71045; 80048; 83735; 83880; 84100; 84484; 85027; 93005; 96360; 99285; A9270; G0378; J7030; 93010; 99222; 99239

== ENCOUNTER 2022-10-31 14:20 | Emergency (ER) | payer MEDICARE, OTHER ==
[2022-10-31] MEDS ORDERED: Sodium Chloride 0.9% 500 ML IV ONE ×2 (15:06→15:24)
[2022-10-31 15:14] LABS: BASOPHILS ABSOLUTE AUTO 0.03 K/uL (0.02-0.10); BASOPHILS PERCENT AUTO 0.5 % (0.0-0.5); EOSINOPHILS ABSOLUTE AUTO 0.06 K/uL (0.04-0.40); HEMATOCRIT 42.8 % (40.0-54.0); HEMOGLOBIN 14.5 g/dL (13.0-18.0); LYMPHOCYTES ABSOLUTE AUTO 1.64 K/uL (1.50-4.00); LYMPHOCYTES PERCENT AUTO 27.2 % (20.0-40.0); MEAN CORPUSCULAR HGB CONC 33.9 g/dL (31.0-35.0); MEAN CORPUSCULAR VOLUME 92 fL (76-96); MEAN PLATELET VOLUME 10.1 fL (6.0-10.0); MONOCYTES ABSOLUTE AUTO 0.45 K/uL (0.20-0.80); MONOCYTES PERCENT AUTO 7.5 % (3.0-10.0); NEUTROPHILS ABSOLUTE AUTO 3.86 K/uL (2.00-7.50); NEUTROPHILS PERCENT AUTO 63.8 % (45.0-70.0); PLATELET COUNT,PLT 207 K/uL (150-400); RED BLOOD CELL COUNT 4.67 M/uL (4.50-6.50); RED CELL DISTRIBUTION WIDTH 14.3 % (11.0-16.0)
[2022-10-31] MEDS ORDERED: Metoprolol Tartrate 25 MG Tab PO ONE (15:24)
[2022-10-31 15:43] LABS: ALANINE AMINOTRANSFERASE,ALT 22 U/L (12-78); ALBUMIN 3.4 g/dL (3.4-5.0); ALKALINE PHOSPHATASE 87 U/L (46-116); ANION GAP 9.4 mmol/L (5.0-15.0); ASPARTATE AMNIOTRANSFERASE,AST 7 U/L (15-37); BILIRUBIN TOTAL 0.6 mg/dL (0.0-1.0); BLOOD UREA NITROGEN,BUN 23 mg/dL (8-26); BUN/CREATININE RATIO 16.8 (6-25); CALCIUM 9.5 mg/dL (8.5-10.1); CARBON DIOXIDE,CO2 27.2 mmol/L (21.0-32.0); CHLORIDE,CL 104 mmol/L (98-107); CREATININE 1.37 mg/dL (0.70-1.30); ESTIMATED GFR 55 mL/min (>60); GLUCOSE RANDOM 183 mg/dL (74-100); POTASSIUM,K 4.6 mmol/L (3.5-5.1); PROTEIN TOTAL,TP 6.7 g/dL (6.4-8.2); SODIUM,NA 136 mmol/L (136-145); TROPONIN I HIGH SENSITIVITY 30.3 pg/ml (<=60.4); TSH ULTRASENSITIVE 1.609 uIU/mL (0.358-3.740)
[2022-10-31 15:47] LABS: PTT,PARTIAL THROMBOPLSTIN TIME 27.3 SECONDS (24.4-33.2)
[2022-10-31 15:48] LABS: PROTHROMBIN TIME 10.7 sec (9.0-11.5)
[2022-10-31] MEDS ORDERED: Metoprolol Tartrate 25 MG Tab ONE (17:00)
[2022-10-31 19:22] VITALS: BP 111/80; PULSE 107
== END 2022-10-31 17:45 | disposition home or self-care (01) ==
LOC: LB.ED 14:20
DX: R00.0 Tachycardia, unspecified (principal); I25.810 Atherosclerosis of coronary artery bypass graft(s) without angina pectoris; E11.9 Type 2 diabetes mellitus without complications; M19.90 Unspecified osteoarthritis, unspecified site; I10 Essential (primary) hypertension; I25.2 Old myocardial infarction; E78.00 Pure hypercholesterolemia, unspecified; Z88.5 Allergy status to narcotic agent; Z79.82 Long term (current) use of aspirin; Z79.01 Long term (current) use of anticoagulants; Z79.899 Other long term (current) drug therapy
CPT/HCPCS: 36415; 71045; 80053; 84443; 84484; 85025; 85610; 85730; 93010; 99283; 99284; A9270-GY; J7040

== ENCOUNTER 2022-11-17 17:20 | Emergency (ER) | payer MEDICARE ==
[2022-11-17 17:31] VITALS: BP 120/84; PULSE 110
[2022-11-17 17:54] LABS: BASOPHILS ABSOLUTE AUTO 0.02 K/uL (0.02-0.10); BASOPHILS PERCENT AUTO 0.3 % (0.0-0.5); EOSINOPHILS PERCENT AUTO 1.6 % (1.0-5.0); HEMATOCRIT 36.6 % (40.0-54.0); HEMOGLOBIN 12.3 g/dL (13.0-18.0); LYMPHOCYTES ABSOLUTE AUTO 1.62 K/uL (1.50-4.00); LYMPHOCYTES PERCENT AUTO 25.8 % (20.0-40.0); MEAN CORPUSCULAR HEMOGLOBIN 31.1 pg (27.0-32.0); MEAN CORPUSCULAR HGB CONC 33.6 g/dL (31.0-35.0); MEAN CORPUSCULAR VOLUME 93 fL (76-96); MEAN PLATELET VOLUME 10.1 fL (6.0-10.0); MONOCYTES ABSOLUTE AUTO 0.54 K/uL (0.20-0.80); MONOCYTES PERCENT AUTO 8.6 % (3.0-10.0); NEUTROPHILS ABSOLUTE AUTO 3.99 K/uL (2.00-7.50); NEUTROPHILS PERCENT AUTO 63.7 % (45.0-70.0); PLATELET COUNT,PLT 192 K/uL (150-400); RED BLOOD CELL COUNT 3.95 M/uL (4.50-6.50); RED CELL DISTRIBUTION WIDTH 14.1 % (11.0-16.0); WHITE BLOOD CELL COUNT,WBC 6.3 K/uL (4.0-11.0)
[2022-11-17 18:02] LABS: INR 1.1 (1.0-3.5)
[2022-11-17 18:07] LABS: A/G RATIO 1.2 (0.8-2.0); ALANINE AMINOTRANSFERASE,ALT 21 U/L (12-78); ALBUMIN 3.5 g/dL (3.4-5.0); ALKALINE PHOSPHATASE 75 U/L (46-116); ANION GAP 12.8 mmol/L (5.0-15.0); ASPARTATE AMNIOTRANSFERASE,AST 13 U/L (15-37); BILIRUBIN TOTAL 0.8 mg/dL (0.0-1.0); BLOOD UREA NITROGEN,BUN 20 mg/dL (8-26); CALCIUM 9.1 mg/dL (8.5-10.1); CARBON DIOXIDE,CO2 27.1 mmol/L (21.0-32.0); CHLORIDE,CL 105 mmol/L (98-107); ESTIMATED GFR 81 mL/min (>60); GLUCOSE RANDOM 152 mg/dL (74-100); POTASSIUM,K 3.9 mmol/L (3.5-5.1); PROTEIN TOTAL,TP 6.5 g/dL (6.4-8.2); SODIUM,NA 141 mmol/L (136-145)
[2022-11-17 18:09] LABS: PROTHROMBIN TIME 11.2 sec (9.0-11.5)
== END 2022-11-17 18:29 | disposition home or self-care (01) ==
LOC: LB.ED 17:20
DX: R07.9 Chest pain, unspecified (principal); I25.10 Atherosclerotic heart disease of native coronary artery without angina pectoris; E11.9 Type 2 diabetes mellitus without complications; I10 Essential (primary) hypertension; I25.2 Old myocardial infarction; Z95.0 Presence of cardiac pacemaker; Z88.5 Allergy status to narcotic agent; Z95.1 Presence of aortocoronary bypass graft; Z79.899 Other long term (current) drug therapy
CPT/HCPCS: 36415; 71045; 80053; 84484; 85025; 85610; 85730; 93005; 93010; 99283; 99285

== ENCOUNTER 2023-05-18 15:10 | Emergency (ER) | payer MEDICARE ==
[2023-05-18 15:47] LABS: BASOPHILS ABSOLUTE AUTO 0.04 K/uL (0.02-0.10); BASOPHILS PERCENT AUTO 0.7 % (0.0-0.5); EOSINOPHILS ABSOLUTE AUTO 0.07 K/uL (0.04-0.40); EOSINOPHILS PERCENT AUTO 1.2 % (1.0-5.0); HEMATOCRIT 36.6 % (40.0-54.0); HEMOGLOBIN 13.3 g/dL (13.0-18.0); LYMPHOCYTES ABSOLUTE AUTO 1.63 K/uL (1.50-4.00); LYMPHOCYTES PERCENT AUTO 27.8 % (20.0-40.0); MEAN CORPUSCULAR HEMOGLOBIN 30.4 pg (27.0-32.0); MEAN CORPUSCULAR HGB CONC 36.3 g/dL (31.0-35.0); MEAN CORPUSCULAR VOLUME 84 fL (76-96); MEAN PLATELET VOLUME 9.6 fL (6.0-10.0); MONOCYTES ABSOLUTE AUTO 0.41 K/uL (0.20-0.80); NEUTROPHILS ABSOLUTE AUTO 3.72 K/uL (2.00-7.50); NEUTROPHILS PERCENT AUTO 63.3 % (45.0-70.0); PLATELET COUNT,PLT 194 K/uL (150-400); RED BLOOD CELL COUNT 4.37 M/uL (4.50-6.50); RED CELL DISTRIBUTION WIDTH 13.6 % (11.0-16.0); WHITE BLOOD CELL COUNT,WBC 5.9 K/uL (4.0-11.0)
[2023-05-18 15:59] LABS: A/G RATIO 1.2 (0.8-2.0); ALBUMIN 3.5 g/dL (3.4-5.0); ANION GAP 12.8 mmol/L (5.0-15.0); BILIRUBIN TOTAL 0.8 mg/dL (0.0-1.0); BUN/CREATININE RATIO 14.7 (6-25); CALCIUM 9.4 mg/dL (8.5-10.1); CARBON DIOXIDE,CO2 27.4 mmol/L (21.0-32.0); CREATININE 1.43 mg/dL (0.70-1.30); EST CRCL DRUG DOSING (CG) 44.3 mL/min; POTASSIUM,K 4.2 mmol/L (3.5-5.1); PROTEIN TOTAL,TP 6.4 g/dL (6.4-8.2)
[2023-05-18 16:02] LABS: PROTHROMBIN TIME 10.7 sec (9.0-11.5)
[2023-05-18 19:16] VITALS: BP 103/61; PULSE 60
== END 2023-05-18 19:15 | disposition home or self-care (01) ==
LOC: LB.ED 15:10
DX: I48.3 Typical atrial flutter (principal); I10 Essential (primary) hypertension; E78.00 Pure hypercholesterolemia, unspecified; I25.2 Old myocardial infarction; I25.810 Atherosclerosis of coronary artery bypass graft(s) without angina pectoris; E11.9 Type 2 diabetes mellitus without complications; Z95.5 Presence of coronary angioplasty implant and graft; Z95.0 Presence of cardiac pacemaker; Z79.82 Long term (current) use of aspirin; Z79.899 Other long term (current) drug therapy; Z79.84 Long term (current) use of oral hypoglycemic drugs; Z88.5 Allergy status to narcotic agent
CPT/HCPCS: 36415; 71045; 80053; 84484; 85025; 85610; 85730; 93005; 93010; 99284